=== PATIENT | male | born 2000 | race Caucasian/White ===

== ENCOUNTER 2021-12-12 11:44 | Outpatient (CLI) | payer OTHER | END 2021-12-12 11:45 | disposition home or self-care (01) | LOC: CSHRAD 11:44 | PROVIDERS: ATTEND Psychiatry & Neurology Neurology | DX: M19.90 Unspecified osteoarthritis, unspecified site (principal); Z86.018 Personal history of other benign neoplasm; M48.54XA Collapsed vertebra, not elsewhere classified, thoracic region, initial encounter for fracture | CPT/HCPCS: 72072; 72100 ==